=== PATIENT | female | born 1935 | race Caucasian/White ===

== ENCOUNTER 2018-04-24 06:52 | Day surgery (SDC) | payer MEDICARE, BC ==
[2018-04-24] MEDS ORDERED: Lactated Ringers 1,000 ML IV SCH (07:15)
[2018-04-24] MEDS ORDERED: Propofol 200 MG/20 ML SDV IV ONE (08:30)
[2018-04-24] MEDS ORDERED: Labetalol 100 MG/20 ML MDV IV ONE (08:30)
--- NOTE | 2018-04-24 09:09 | PCM.OPNOTE ---
- General Post-Op/Procedure Note Date of Surgery/Procedure: 04/24/18 Operative Procedure(s): attempted c scope Findings: sharp angle incomplete scope could not advance descending colon Pre Op Diagnosis: anemia secondary to kidney disease. need for screening c scope. Post-Op Diagnosis: tortuous colon Anesthesia Technique: MAC Primary Surgeon: Ty Barroso Anesthesia Provider: Jerardo Santana Pathology: none Complications: None Condition: Good Free Text/Narrative:: see dictation
--- NOTE | 2018-04-24 16:48 | OR ---
DATE OF OPERATION: 04/24/2018 SURGEON: Ty Barroso MD PROCEDURE PERFORMED: Flexible sigmoidoscopy. PREOPERATIVE DIAGNOSIS: History of anemia, never having a previous C-scope. POSTOPERATIVE DIAGNOSIS: Normal sigmoid colon and rectum, sharp angle, incomplete colonoscopy. INDICATIONS FOR PROCEDURE: This is an 82-year-old white female who is referred with a history of anemia. Of note, her indices did suggest chronic blood loss, are all within normal limits. She has never had a colonoscopy and essentially was offered and accepted a C-scope on that basis. DESCRIPTION OF PROCEDURE: After an excellent IV sedation was administered, digital rectal exam was performed. No marked abnormality was noted. Flexible colonoscope was inserted and advanced. At approximately 30 cm, we were unable to advance the scope further due to sharp angles in the colon, and this was despite abdominal wall pressure and manipulating the patient. Rather than risk perforation, I elected to terminate the procedure. The sigmoid and rectum were unremarkable. We will be getting an air contrast barium enema to clear the remainder of her colon. /[id number] /MODL
== END 2018-04-24 10:15 | disposition home or self-care (01) ==
LOC: FB.SDS 06:52
PROVIDERS: ATTEND Surgery
DX: I12.9 Hypertensive chronic kidney disease with stage 1 through stage 4 chronic kidney disease, or unspecified chronic kidney disease (principal); N18.3 Chronic kidney disease, stage 3 (moderate); D63.1 Anemia in chronic kidney disease; E87.5 Hyperkalemia; M19.90 Unspecified osteoarthritis, unspecified site; H25.9 Unspecified age-related cataract; Z79.899 Other long term (current) drug therapy; Z88.1 Allergy status to other antibiotic agents; Z90.49 Acquired absence of other specified parts of digestive tract
CPT/HCPCS: 00812; 45330; J2704; J7120

== ENCOUNTER 2019-06-29 09:34 | Day surgery (SDC) | payer MEDICARE, BC ==
[2019-06-29] MEDS ORDERED: Midazolam 1 MG/ML 2 ML SDV IV ONE (09:35)
[2019-06-29] MEDS ORDERED: fentaNYL 100 MCG/2 ML SDV IV ONE (09:35)
[2019-06-29] MEDS ORDERED: Lactated Ringers 1,000 ML IV PRN (10:00)
[2019-06-29] MEDS: Sodium Chloride 0.9% 10 ML Syringe FLUSH PRN (11:17)
--- NOTE | 2019-06-30 11:34 | OR ---
DATE OF OPERATION: 06/29/2019 SURGEON: Negrita Mendoza MD PREOPERATIVE DIAGNOSIS: Visually significant cataract, left eye. POSTOPERATIVE DIAGNOSIS: Visually significant cataract, left eye. PROCEDURES PERFORMED: Phacoemulsification with intraocular lens placement, left eye. ASSISTANTS: None. ANESTHESIA: Local with sedation. COMPLICATIONS: None. BLOOD LOSS: None. IMPLANTS: Roderick AU00T0 23.0 diopter lens, serial number [id number], implanted. CDE: 4.42. DESCRIPTION OF PROCEDURE: After risks and benefits were reviewed with the patient, consent was obtained in the preoperative area, and the operative eye was marked with a surgical pen. In the preoperative area, a pledget was used to dilate the pupil consisting of a mixture of phenylephrine 10%, cyclopentolate 2%, moxifloxacin 0.5%, and bupivacaine 0.75%. The patient was taken to the operating room, where a time-out was performed, and the patient was placed under monitored anesthesia care. Topical tetracaine was used for anesthesia. The operative eye was prepped and draped for ophthalmic surgery, and the microscope was brought into position and focussed. A paracentesis incision was made, followed by injection of preservative-free 1% lidocaine into the anterior chamber, followed by injection of Viscoat into the anterior chamber. A microkeratome blade was used to make a corneal limbal incision temporarily. A cystotome was used to make the beginning of the capsulorrhexis, which was carried around 360 degrees in a curvilinear fashion using Utrata forceps. A Porter cannula with BSS was used to hydrodissect and hydrodelineate the nucleus. The nucleus was removed in a divide and conquer manner using phacoemulsification. Irrigation and aspiration were used to remove the remaining cortical material. Provisc was used to inflate the capsular bag, and a pre-loaded Roderick AU00T0 23.0 diopter lens, serial number [id number], was injected into the capsular bag. A Sinskey hook was used to position and center the lens. Next, irrigation and aspiration was used to remove any remaining viscoelastic and cortical material from the anterior chamber. BSS on a cannula was used to inflate the anterior chamber and hydrate the wound. The wound was checked and found to be watertight. 1 mg of Moxifloxacin was injected into the anterior chamber. Drapes were removed and the eye was cleaned. A drop of brimonidine 0.15% and a drop of TobraDex was placed. The eye was shielded, and the patient was taken to the recovery room in stable condition. /[id number] ALONSO/COLE CC: CHRISTY GARCIA OD, SUNITHA WHATLEY MD MTDD
== END 2019-06-29 12:55 | disposition home or self-care (01) ==
LOC: FB.SDS 09:34
PROVIDERS: ATTEND Ophthalmology
DX: H25.013 Cortical age-related cataract, bilateral (principal); I12.9 Hypertensive chronic kidney disease with stage 1 through stage 4 chronic kidney disease, or unspecified chronic kidney disease; N18.3 Chronic kidney disease, stage 3 (moderate); E78.5 Hyperlipidemia, unspecified; M19.90 Unspecified osteoarthritis, unspecified site; J30.2 Other seasonal allergic rhinitis; F41.9 Anxiety disorder, unspecified; Z79.899 Other long term (current) drug therapy; Z88.1 Allergy status to other antibiotic agents; Z88.8 Allergy status to other drugs, medicaments and biological substances
CPT/HCPCS: 00142-QZ; J2250; J3010

== ENCOUNTER 2019-07-27 07:32 | Day surgery (SDC) | payer MEDICARE, BC ==
[2019-07-27] MEDS ORDERED: Midazolam 1 MG/ML 2 ML SDV IV ONE (07:33)
[2019-07-27] MEDS ORDERED: fentaNYL 100 MCG/2 ML SDV IV ONE (07:33)
[2019-07-27] MEDS ORDERED: Lactated Ringers 1,000 ML IV PRN (07:45)
[2019-07-27] MEDS ORDERED: Sodium Chloride 0.9% 10 ML Syringe FLUSH PRN (07:45)
[2019-07-27] MEDS ORDERED: Lactated Ringers 1,000 ML IV SCH (07:45)
--- NOTE | 2019-07-27 17:22 | OR ---
DATE OF OPERATION: 07/27/2019 SURGEON: Negrita Mendoza MD PREOPERATIVE DIAGNOSIS: Visually significant cataract, right eye. POSTOPERATIVE DIAGNOSIS: Visually significant cataract, right eye. PROCEDURES PERFORMED: Phacoemulsification with intraocular lens placement, right eye. ASSISTANTS: None. ANESTHESIA: Local with sedation. COMPLICATIONS: None. BLOOD LOSS: None. IMPLANTS: Roderick AU00T0 22.0 diopter lens, serial number [id number]. CDE: 3.32. DESCRIPTION OF PROCEDURE: After risks and benefits were reviewed with the patient, consent was obtained in the preoperative area, and the operative eye was marked with a surgical pen. In the preoperative area, a pledget was used to dilate the pupil consisting of a mixture of phenylephrine 10%, cyclopentolate 2%, moxifloxacin 0.5%, and bupivacaine 0.75%. The patient was taken to the operating room, where a time-out was performed, and the patient was placed under monitored anesthesia care. Topical tetracaine was used for anesthesia. The operative eye was prepped and draped for ophthalmic surgery, and the microscope was brought into position and focussed. A paracentesis incision was made, followed by injection of preservative-free 1% lidocaine into the anterior chamber, followed by injection of Viscoat into the anterior chamber. A microkeratome blade was used to make a corneal limbal incision temporarily. A cystotome was used to make the beginning of the capsulorrhexis, which was carried around 360 degrees in a curvilinear fashion using Utrata forceps. A Porter cannula with BSS was used to hydrodissect and hydrodelineate the nucleus. The nucleus was removed in a divide and conquer manner using phacoemulsification. Irrigation and aspiration were used to remove the remaining cortical material. Provisc was used to inflate the capsular bag, and a pre-loaded Roderick AU00T0 22.0 diopter lens, serial number [id number], was injected into the capsular bag. A Sinskey hook was used to position and center the lens. Next, irrigation and aspiration was used to remove any remaining viscoelastic and cortical material from the anterior chamber. BSS on a cannula was used to inflate the anterior chamber and hydrate the wound. The wound was checked and found to be watertight. 1 mg of Moxifloxacin was injected into the anterior chamber. A bandage contact lens was placed since the patient did have a corneal abrasion after the last surgery on her left eye. Drapes were removed and the eye was cleaned. A drop of brimonidine 0.15% and a drop of TobraDex was placed. The eye was shielded, and the patient was taken to the recovery room in stable condition. /[id number] ALONSO/COLE CC: RADHA GARDNER MD MTDD
== END 2019-07-27 11:09 | disposition home or self-care (01) ==
LOC: FB.SDS 07:32
PROVIDERS: ATTEND Ophthalmology
DX: H25.013 Cortical age-related cataract, bilateral (principal); I12.9 Hypertensive chronic kidney disease with stage 1 through stage 4 chronic kidney disease, or unspecified chronic kidney disease; N18.3 Chronic kidney disease, stage 3 (moderate); G47.00 Insomnia, unspecified; F41.9 Anxiety disorder, unspecified; J30.2 Other seasonal allergic rhinitis; E78.5 Hyperlipidemia, unspecified; M19.90 Unspecified osteoarthritis, unspecified site; Z79.899 Other long term (current) drug therapy; Z88.1 Allergy status to other antibiotic agents; Z88.8 Allergy status to other drugs, medicaments and biological substances
CPT/HCPCS: 00142; 66984; J2250; J3010; V2632

== ENCOUNTER 2020-02-21 10:21 | Observation (INO) | payer MEDICARE, BC ==
[2020-02-21] MEDS ORDERED: Sodium Chloride 0.9% 500 ML IV ONE (10:49)
--- NOTE | 2020-02-21 10:49 | EDM.PDOC ---
ED HPI GENERAL MEDICAL PROBLEM - General Chief Complaint: General Stated Complaint: WEAKNESS Time Seen by Provider: 02/21/20 10:44 Source of Information: Reports: Patient History Limitations: Reports: No Limitations - History of Present Illness INITIAL COMMENTS - FREE TEXT/NARRATIVE: Presents with generalized weakness x 2 weeks. She was recently treated for a UTI , those symptoms have cleared. Denies focal weakness, chest pain, SOB, or fever , but has had a cough. No prior h/o CAD. Denies known exposure to COVID-19. Patient takes Aleve daily for arthritis. Duration: Week(s): (2) Severity: Moderate - Related Data Allergies Allergy/AdvReac Type Severity Reaction Status Date / Time ciprofloxacin [From Cipro] Allergy Hives Verified 04/24/18 07:49 lisinopril Allergy Cannot Verified 06/21/19 14:46 Remember SEASONAL Allergy Sneezing Uncoded 06/21/19 14:46 Home Meds: Home Meds ALPRAZolam [Xanax] 0.25 mg PO BEDTIME 04/23/18 [History] Ascorbic Acid [Vitamin C] 1,000 mg PO DAILY 04/23/18 [History] Cholecalciferol (Vitamin D3) [Vitamin D3] 400 unit PO DAILY 04/23/18 [History] Flaxseed Oil 1,000 mg PO DAILY 04/23/18 [History] Metoprolol Tartrate 50 mg PO DAILY 04/23/18 [History] Pyridoxine HCl (Vitamin B6) [Vitamin B-6] 100 mg PO DAILY 04/23/18 [History] Cholecalciferol (Vitd3)/Vit K2 [D3 + K2 Dots 1,000 Unit] 1 ea PO DAILY 06/22/19 [History] Magnesium Oxide 250 mg PO DAILY 06/22/19 [History] hydroCHLOROthiazide [Hydrochlorothiazide] 25 mg PO DAILY 06/22/19 [History] Past Medical History HEENT History: Reports: Cataract, Impaired Vision, Macular Degeneration Cardiovascular History: Reports: High Cholesterol, Hypertension Respiratory History: Reports: None Gastrointestinal History: Reports: None Genitourinary History: Reports: Renal Disease, Other (See Below) Other Genitourinary History: STAGE 3 CKD, RENAL MASS TEST PULLER History: Reports: None, 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 Musculoskeletal History: Reports: Arthritis Neurological History: Reports: None Psychiatric History: Reports: Anxiety, Other (See Below) Other Psychiatric History: NEUROSIS Endocrine/Metabolic History: Other Endocrine/Metabolic History: ELEVATED LFTS Hematologic History: Reports: Other (See Below) Other Hematologic History: HYPERKALEMIA Oncologic (Cancer) History: Reports: Other (See Below) Other Oncologic History: KIDNEY Dermatologic History: Reports: None - Infectious Disease History Infectious Disease History: Reports: Chicken Pox, Measles, Mumps - Past Surgical History Head Surgeries/Procedures: Reports: None HEENT Surgical History: Reports: None, Cataract Surgery Cardiovascular Surgical History: Reports: None Respiratory Surgical History: Reports: None GI Surgical History: Reports: Appendectomy, Other (See Below) Other GI Surgeries/Procedures: RESECTION OF SMALL BOWEL IN 1987 Female Surgical History: Reports: Hysterectomy, Nephrectomy, Salpingo- Oophorectomy Other Female Surgeries/Procedures: RIGHT NEPHRECTOMY ET STATES WATING OF LEFT KIDNEY. HYOST ET WIH EVENTUAL BSO IN 2ND SURGERY Endocrine Surgical History: Reports: None Neurological Surgical History: Reports: None Musculoskeletal Surgical History: Reports: None Other Oncologic Surgeries/Procedures: RIGHT NEPHRECTOMY Dermatological Surgical History: Reports: None Social & Family History - Family History Family Medical History: Noncontributory - Caffeine Use Caffeine Use: Reports: Soda, Tea ED ROS GENERAL - Review of Systems Review Of Systems: Comprehensive ROS is negative, except as noted in HPI. ED EXAM, GENERAL - Physical Exam Exam: See Below Exam Limited By: No Limitations General Appearance: Alert, WD/WN, No Apparent Distress Throat/Mouth: No Airway Compromise Head: Atraumatic, Normocephalic Respiratory/Chest: No Respiratory Distress, Lungs Clear, Normal Breath Sounds Cardiovascular: No Murmur, Bradycardia (apical pulse 30's) GI/Abdominal: Non-Tender, No Distention Rectal (Female) Exam: Other (Minimal brown stool in vault) Extremities: Normal Range of Motion, No Pedal Edema Neurological: Alert, Oriented, CN II-XII Intact, Normal Cognition, No Motor/ Sensory Deficits, Other (GCS=15, NIHSS=0) Psychiatric: Normal Affect, Normal Mood Skin Exam: Warm, Dry, Intact EKG INTERPRETATION EKG Date: 02/21/20 Time: 11:16 Rhythm: Other (Bigeminy) Rate (Beats/Min): 76 [place]: Normal P-Wave: Present ST-T: Normal Comparison: NA - No Prior EKG Course - Vital Signs Last Recorded V/S: Last Vital Signs Temp 36.3 C 02/21/20 10:51 Pulse 42 L 02/21/20 10:51 Resp 18 02/21/20 12:06 BP 149/97 H 02/21/20 12:06 Pulse Ox 100 02/21/20 12:06 - Orders/Labs/Meds Orders: Active Orders 24 hr Category Date Time Status Admission Status [Patient Status] [ADT] Routine ADT 02/21/20 12:30 Ordered EKG Documentation Completion [RC] ASDIRECTED Care 02/21/20 10:37 Active CULTURE BLOOD [BC] Urgent Lab 02/21/20 10:45 Received CULTURE BLOOD [BC] Urgent Lab 02/21/20 10:50 Received Hemoccult [OCCULT BLOOD DIAGNOSTIC] [OP] Stat Lab 02/21/20 11:30 Received TYPE AND SCREEN [BBK] Stat Lab 02/21/20 10:45 Received Sodium Chloride 0.9% [Saline Flush] Med 02/21/20 10:38 Active 10 ml FLUSH ASDIRECTED PRN Blood Culture x2 Reflex Set [OM.PC] Urgent Oth 02/21/20 10:44 Ordered Saline Lock Insert [OM.PC] Routine Oth 02/21/20 10:38 Ordered EKG 12 Lead [EK] Stat Ther 02/21/20 10:36 Ordered Medication Orders Sodium Chloride (Saline Flush) 10 ml FLUSH ASDIRECTED PRN PRN Reason: Keep Vein Open Labs: Laboratory Tests 02/21/20 02/21/20 02/21/20 Range/Units 10:45 10:45 10:45 WBC 6.9 (4.5-12.0) X10-3/uL RBC 3.13 L (3.23-5.20) x10(6)uL Hgb 7.0 L (11.5-15.5) g/dL Hct 22.4 L D (30.0-51.3) % MCV 71.7 L (80-96) fL MCH 22.3 L (27.7-33.6) pg MCHC 31.2 L (32.2-35.4) g/dL RDW 16.6 H (11.5-15.5) % Plt Count 322 (125-369) X10(3)uL MPV 8.3 (7.4-10.4) fL Neut % (Auto) 62.7 (46-82) % Lymph % (Auto) 18.2 (13-37) % Reeves % (Auto) 13.7 H (4-12) % Eos % (Auto) 4 (1.0-5.0) % Baso % (Auto) 2 (0-2) % Neut # (Auto) 4.4 (1.6-8.3) # Lymph # (Auto) 1.2 (0.6-5.0) # Reeves # (Auto) 0.9 (0.0-1.3) # Eos # (Auto) 0.3 (0.0-0.8) # Baso # (Auto) 0.1 (0.0-0.2) # PT 10.9 (9.0-11.1) sec INR 1.01 (1.00-1.24) APTT 22.7 L (24.4-33.2) SECONDS Sodium 133 L (135-145) mmol/L Potassium 4.7 (3.5-5.3) mmol/L Chloride 100 (100-110) mmol/L Carbon Dioxide 22 (21-32) mmol/L BUN 20 H (7-18) mg/dL Creatinine 2.2 H* (0.55-1.02) mg/dL Est Cr Clr Drug Dosing 19.89 mL/min Estimated GFR (MDRD) 21 L (>60) BUN/Creatinine Ratio 9.1 (9-20) Glucose 102 (80-116) mg/dL Lactic Acid (0.4-2.0) mmol/L Calcium 8.1 L (8.6-10.2) mg/dL Magnesium 2.2 (1.8-2.5) mg/dL Total Bilirubin 0.4 (0.1-1.3) mg/dL AST 34 H (5-25) IU/L ALT 21 (12-36) U/L Alkaline Phosphatase 84 (56-112) IU/L Troponin I (4.0-60.3) pg/mL Total Protein 6.3 (6.0-8.0) g/dL Albumin 2.9 L (3.2-4.6) g/dL Globulin 3.4 g/dL Albumin/Globulin Ratio 0.9 Urine Color (YELLOW) Urine Appearance (CLEAR) Urine pH (5.0-6.5) Ur Specific [place] (1.010-1.025) Urine Protein (NEGATIVE) mg/dL Urine Glucose (UA) (NORMAL) mg/dL Urine Ketones (NEGATIVE) mg/dL Urine Occult Blood (NEGATIVE) Urine Nitrite (NEGATIVE) Urine Bilirubin (NEGATIVE) Urine Urobilinogen (NEGATIVE) mg/dL Ur Leukocyte Esterase (NEGATIVE) Urine WBC (0-5) Ur Squamous Epith Cells (NS,R,O) Urine Bacteria (NS) 02/21/20 02/21/20 02/21/20 Range/Units 10:45 10:45 11:42 WBC (4.5-12.0) X10-3/uL RBC (3.23-5.20) x10(6)uL Hgb (11.5-15.5) g/dL Hct (30.0-51.3) % MCV (80-96) fL MCH (27.7-33.6) pg MCHC (32.2-35.4) g/dL RDW (11.5-15.5) % Plt Count (125-369) X10(3)uL MPV (7.4-10.4) fL Neut % (Auto) (46-82) % Lymph % (Auto) (13-37) % Reeves % (Auto) (4-12) % Eos % (Auto) (1.0-5.0) % Baso % (Auto) (0-2) % Neut # (Auto) (1.6-8.3) # Lymph # (Auto) (0.6-5.0) # Reeves # (Auto) (0.0-1.3) # Eos # (Auto) (0.0-0.8) # Baso # (Auto) (0.0-0.2) # PT (9.0-11.1) sec INR (1.00-1.24) APTT (24.4-33.2) SECONDS Sodium (135-145) mmol/L Potassium (3.5-5.3) mmol/L Chloride (100-110) mmol/L Carbon Dioxide (21-32) mmol/L BUN (7-18) mg/dL Creatinine (0.55-1.02) mg/dL Est Cr Clr Drug Dosing mL/min Estimated GFR (MDRD) (>60) BUN/Creatinine Ratio (9-20) Glucose (80-116) mg/dL Lactic Acid 1.6 (0.4-2.0) mmol/L Calcium (8.6-10.2) mg/dL Magnesium (1.8-2.5) mg/dL Total Bilirubin (0.1-1.3) mg/dL AST (5-25) IU/L ALT (12-36) U/L Alkaline Phosphatase (56-112) IU/L Troponin I 14.1 (4.0-60.3) pg/mL Total Protein (6.0-8.0) g/dL Albumin (3.2-4.6) g/dL Globulin g/dL Albumin/Globulin Ratio Urine Color Yellow (YELLOW) Urine Appearance Clear (CLEAR) Urine pH 7.0 H (5.0-6.5) Ur Specific [place] 1.015 (1.010-1.025) Urine Protein Negative (NEGATIVE) mg/dL Urine Glucose (UA) Normal (NORMAL) mg/dL Urine Ketones Negative (NEGATIVE) mg/dL Urine Occult Blood Negative (NEGATIVE) Urine Nitrite Negative (NEGATIVE) Urine Bilirubin Negative (NEGATIVE) Urine Urobilinogen Normal (NEGATIVE) mg/dL Ur Leukocyte Esterase Negative (NEGATIVE) Urine WBC 0-5 (0-5) Ur Squamous Epith Cells Few H (NS,R,O) Urine Bacteria Few H (NS) Meds: Medications Generic Name Dose Route Start Last Admin Trade Name Freq PRN Reason Stop Dose Admin Sodium Chloride 10 ml 02/21/20 10:38 Saline Flush FLUSH ASDIRECTED PRN Keep Vein Open Discontinued Medications Generic Name Dose Route Start Last Admin Trade Name Freq PRN Reason Stop Dose Admin Sodium Chloride 500 mls @ 500 mls/hr 02/21/20 10:49 02/21/20 11:38 Normal Saline IV 02/21/20 11:48 500 mls/hr .BOLUS ONE Administration Pantoprazole Sodium 40 mg 02/21/20 11:47 Protonix Iv IVPUSH 02/21/20 11:48 ONETIME ONE - Radiology Interpretation Free Text/Narrative:: CXR: No acute process. (Dr. Phelps) - Re-Assessments/Exams Free Text/Narrative Re-Assessment/Exam: 02/21/20 11:39 Prior Hb 10.1 on 03/18/19 and Creat 1.65 on 06/15/19. 02/21/20 11:57 Lab states not enough stool to run stool hemoccult 02/21/20 12:32 Bigeminy resolved, Apical pulse 60's. 02/21/20 12:36 Dr. Lopez agrees to admit patient to [facility]. Patient requests DNR status. Departure - Departure Time of Disposition: 12:34 Disposition: Admitted As Inpatient 68 Condition: Fair Clinical Impression: Sinus bradycardia, Ventricular bigeminy, CKD (chronic kidney disease) stage 4, GFR 15-29 ml/min Anemia Qualifiers: Anemia type: due to chronic kidney disease Chronic kidney disease stage: stage 3 (moderate) Qualified Code(s): N18.3 - Chronic kidney disease, stage 3 ( moderate) Referrals: Denise Enrique, COMMUNITY RELATIONS COORDINATOR [Primary Care Provider] - Forms: ED Department Discharge Sepsis Event Note - Focused Exam Vital Signs: Vital Signs Temp Pulse Resp BP Pulse Ox 02/21/20 12:06 18 149/97 H 100 02/21/20 10:51 36.3 C 42 L 16 130/33 L 100 Date Exam was Performed: 02/21/20 Time Exam was Performed: 12:32 - My Orders Last 24 Hours: My Active Orders 02/21/20 10:36 EKG 12 Lead [EK] Stat 02/21/20 10:37 EKG Documentation Completion [RC] ASDIRECTED 02/21/20 10:38 Sodium Chloride 0.9% [Saline Flush] 10 ml FLUSH ASDIRECTED PRN Saline Lock Insert [OM.PC] Routine 02/21/20 10:44 Blood Culture x2 Reflex Set [OM.PC] Urgent 02/21/20 10:45 CULTURE BLOOD [BC] Urgent TYPE AND SCREEN [BBK] Stat 02/21/20 10:50 CULTURE BLOOD [BC] Urgent 02/21/20 11:30 Hemoccult [OCCULT BLOOD DIAGNOSTIC] [OP] Stat 02/21/20 12:30 Admission Status [Patient Status] [ADT] Routine - Assessment/Plan Last 24 Hours: My Active Orders 02/21/20 10:36 EKG 12 Lead [EK] Stat 02/21/20 10:37 EKG Documentation Completion [RC] ASDIRECTED 02/21/20 10:38 Sodium Chloride 0.9% [Saline Flush] 10 ml FLUSH ASDIRECTED PRN Saline Lock Insert [OM.PC] Routine 02/21/20 10:44 Blood Culture x2 Reflex Set [OM.PC] Urgent 02/21/20 10:45 CULTURE BLOOD [BC] Urgent TYPE AND SCREEN [BBK] Stat 02/21/20 10:50 CULTURE BLOOD [BC] Urgent 02/21/20 11:30 Hemoccult [OCCULT BLOOD DIAGNOSTIC] [OP] Stat 02/21/20 12:30 Admission Status [Patient Status] [ADT] Routine
--- NOTE | 2020-02-21 11:40 | CR ---
INDICATION: Weakness. CHEST, ONE VIEW: Portable AP upright view of the chest 02/21/20 - no comparisons. The heart appears enlarged. The aorta is slightly tortuous with calcification in the arch. Overlying EKG leads are noted. A definite active infiltrate or effusion was not identified. IMPRESSION: No acute process. MTDD
[2020-02-21] MEDS ORDERED: Pantoprazole 40 MG Vial IVPUSH ONE (11:47)
[2020-02-21] MEDS ORDERED: Acetaminophen 325 MG Tab PO PRN (12:56)
[2020-02-21] MEDS: Sodium Chloride 0.9% 250 ML IV SCH (14:00)
[2020-02-21] MEDS: Sodium Chloride 0.9% 10 ML Syringe FLUSH PRN (17:00)
[2020-02-21] MEDS ORDERED: ALPRAZolam 0.25 MG Tab PO SCH (21:00)
[2020-02-22] MEDS: Sodium Chloride 0.9% 10 ML Syringe FLUSH PRN ×2 (00:55→11:50)
[2020-02-22] MEDS ORDERED: Pantoprazole 40 MG Vial IVPUSH SCH (01:00)
[2020-02-22] MEDS ORDERED: Sodium Chloride 0.9% 250 ML IV SCH (08:45)
[2020-02-22] MEDS ORDERED: Hydrochlorothiazide 25 MG Tab PO SCH (09:00)
[2020-02-22] MEDS ORDERED: MAGNESIUM OXIDE 250 MG PO SCH (09:00)
[2020-02-22] MEDS: Sodium Chloride 0.9% 250 ML IV SCH (09:17)
--- NOTE | 2020-02-22 10:35 | PN ---
DATE SEEN: 02/22/2020 HISTORY: Caity Chambers is an 84-year-old female, admitted with a low hemoglobin of 7. Microcytic indices, probably GI loss, probably related to Aleve. Had a good night, though slept reluctantly. Hemoglobin ginna from 7 to 8.6 last evening, this morning 8.4. Another unit of blood will be given. Discussed endoscopy is a consideration. PHYSICAL EXAMINATION: VITAL SIGNS: Stable. 36.3, 86, 156/82, 16, and 98. GENERAL: In good spirits. NECK: Benign. Thyroid small. No JVD. CHEST: Clear in all lung mendes. HEART: No ectopy or murmur. ABDOMEN: Benign. Anemia likely of GI origin. PLAN: The 2nd unit of blood will be given today, hemoglobin follow. Complementary care and well being. Likely discharge this evening. Consider endoscopy upcoming. /[id number] NIECY/COLE
--- NOTE | 2020-02-22 10:54 | PCM.CONS ---
H&P History of Present Illness - General Date of Service: 02/22/20 Admit Problem/Dx: Admission Diagnosis/Problem Admission Diagnosis/Problem Anemia Source of Information: Patient - History of Present Illness Initial Comments - Free Text/Narative: 84 YO boone who was admitted with a hx of fatigue as well as some leg discomfort. Was noted to be anemic. Admitted and has received a 2 units. She has been on Aleve for yrs. Notes some mild epigastric abd discomfort. Stools have been dark to black recently. Has a hx of intestinal resection in the past as well as a hysterectomy. C scope in the distant past and is reported as negative. DENIES ANY PAIN WHEN ASKED AT PRESENT TIME Pain Score (Numeric/FACES): 0 - Related Data Allergies/Adverse Reactions: Allergies Allergy/AdvReac Type Severity Reaction Status Date / Time ciprofloxacin [From Cipro] Allergy Hives Verified 04/24/18 07:49 lisinopril Allergy Cannot Verified 06/21/19 14:46 Remember SEASONAL Allergy Sneezing Uncoded 06/21/19 14:46 Home Medications: Home Meds ALPRAZolam [Xanax] 0.5 mg PO BEDTIME 04/23/18 [History] Ascorbic Acid [Vitamin C] 1,000 mg PO DAILY 04/23/18 [History] Cholecalciferol (Vitamin D3) [Vitamin D3] 400 unit PO DAILY 04/23/18 [History] Flaxseed Oil 1,000 mg PO DAILY 04/23/18 [History] Pyridoxine HCl (Vitamin B6) [Vitamin B-6] 100 mg PO DAILY 04/23/18 [History] Cholecalciferol (Vitd3)/Vit K2 [D3 + K2 Dots 1,000 Unit] 1 ea PO DAILY 06/22/19 [History] Magnesium Oxide 250 mg PO DAILY 06/22/19 [History] Acetaminophen [Tylenol] 650 mg PO Q6H PRN tablet 02/22/20 [Rx] Ferrous Sulfate 325 mg PO BIDMEALS #60 tablet 02/22/20 [Rx] Pantoprazole [ProTONIX] 40 mg PO 0600 #30 tab.cr 02/22/20 [Rx] Past Medical History HEENT History: Reports: Cataract, Impaired Vision, Macular Degeneration Cardiovascular History: Reports: High Cholesterol, Hypertension Respiratory History: Reports: None Gastrointestinal History: Reports: None Genitourinary History: Reports: Renal Disease, Other (See Below) Other Genitourinary History: STAGE 3 CKD, RENAL MASS. Removed right kidney TUBE DRAW HELPER History: Reports: None, Other OB/BYN History: GRAVIDAA II PARA II Musculoskeletal History: Reports: Arthritis Neurological History: Reports: None Psychiatric History: Reports: Anxiety, Other (See Below) Other Psychiatric History: NEUROSIS Endocrine/Metabolic History: Other Endocrine/Metabolic History: ELEVATED LFTS Hematologic History: Reports: Other (See Below) Other Hematologic History: HYPERKALEMIA Oncologic (Cancer) History: Reports: Other (See Below) Other Oncologic History: KIDNEY Dermatologic History: Reports: None - Infectious Disease History Infectious Disease History: Reports: Chicken Pox, Measles, Mumps - Past Surgical History Head Surgeries/Procedures: Reports: None HEENT Surgical History: Reports: None, Cataract Surgery Cardiovascular Surgical History: Reports: None Respiratory Surgical History: Reports: None GI Surgical History: Reports: Appendectomy, Other (See Below) Other GI Surgeries/Procedures: RESECTION OF SMALL BOWEL IN 1987 Female Surgical History: Reports: Hysterectomy, Nephrectomy, Salpingo- Oophorectomy Other Female Surgeries/Procedures: RIGHT NEPHRECTOMY ET STATES WATING OF LEFT KIDNEY. HYOST ET WIH EVENTUAL BSO IN 2ND SURGERY Endocrine Surgical History: Reports: None Neurological Surgical History: Reports: None Musculoskeletal Surgical History: Reports: None Other Oncologic Surgeries/Procedures: RIGHT NEPHRECTOMY Dermatological Surgical History: Reports: None Social & Family History - Family History Family Medical History: Noncontributory - Tobacco Use Smoking Status *Q: Never Smoker - Caffeine Use Caffeine Use: Reports: Soda Other Caffeine Use: 1 coke/day - Recreational Drug Use Recreational Drug Use: No H&P Review of Systems - Review of Systems: Review Of Systems: See Below General: Reports: Fatigue Pulmonary: Reports: No Symptoms Gastrointestinal: Reports: Abdominal Pain, Black Stool Exam - Exam Exam: See Below - Vital Signs Vital Signs: Last Vital Signs Temp 98.0 F 02/22/20 09:32 Pulse 81 02/22/20 09:32 Resp 18 02/22/20 09:32 BP 149/71 H 02/22/20 09:32 Pulse Ox 100 02/22/20 09:32 Weight: 67.358 kg - Exam General: Alert, Oriented, Cooperative. No: Mild Distress Lungs: Clear to Auscultation, Normal Respiratory Effort Cardiovascular: Regular Rate, Regular Rhythm GI/Abdominal Exam: Normal Bowel Sounds, Tender (very mild in the epigastrium ) - Patient Data Lab Results Last 24 hrs: Laboratory Results - last 24 hr 02/21/20 02/21/20 02/21/20 Range/Units 10:45 10:45 10:45 WBC 6.9 (4.5-12.0) X10-3/uL RBC 3.13 L (3.23-5.20) x10(6)uL Hgb 7.0 L (11.5-15.5) g/dL Hct 22.4 L D (30.0-51.3) % MCV 71.7 L (80-96) fL MCH 22.3 L (27.7-33.6) pg MCHC 31.2 L (32.2-35.4) g/dL RDW 16.6 H (11.5-15.5) % Plt Count 322 (125-369) X10(3)uL MPV 8.3 (7.4-10.4) fL Neut % (Auto) 62.7 (46-82) % Lymph % (Auto) 18.2 (13-37) % Lamb % (Auto) 13.7 H (4-12) % Eos % (Auto) 4 (1.0-5.0) % Baso % (Auto) 2 (0-2) % Neut # (Auto) 4.4 (1.6-8.3) # Lymph # (Auto) 1.2 (0.6-5.0) # Lamb # (Auto) 0.9 (0.0-1.3) # Eos # (Auto) 0.3 (0.0-0.8) # Baso # (Auto) 0.1 (0.0-0.2) # PT 10.9 (9.0-11.1) sec INR 1.01 (1.00-1.24) APTT 22.7 L (24.4-33.2) SECONDS Sodium 133 L (135-145) mmol/L Potassium 4.7 (3.5-5.3) mmol/L Chloride 100 (100-110) mmol/L Carbon Dioxide 22 (21-32) mmol/L BUN 20 H (7-18) mg/dL Creatinine 2.2 H* (0.55-1.02) mg/dL Est Cr Clr Drug Dosing 19.89 mL/min Estimated GFR (MDRD) 21 L (>60) BUN/Creatinine Ratio 9.1 (9-20) Glucose 102 (80-116) mg/dL Lactic Acid (0.4-2.0) mmol/L Calcium 8.1 L (8.6-10.2) mg/dL Magnesium 2.2 (1.8-2.5) mg/dL Total Bilirubin 0.4 (0.1-1.3) mg/dL AST 34 H (5-25) IU/L ALT 21 (12-36) U/L Alkaline Phosphatase 84 (56-112) IU/L Troponin I (4.0-60.3) pg/mL Total Protein 6.3 (6.0-8.0) g/dL Albumin 2.9 L (3.2-4.6) g/dL Globulin 3.4 g/dL Albumin/Globulin Ratio 0.9 Urine Color (YELLOW) Urine Appearance (CLEAR) Urine pH (5.0-6.5) Ur Specific Franklin (1.010-1.025) Urine Protein (NEGATIVE) mg/dL Urine Glucose (UA) (NORMAL) mg/dL Urine Ketones (NEGATIVE) mg/dL Urine Occult Blood (NEGATIVE) Urine Nitrite (NEGATIVE) Urine Bilirubin (NEGATIVE) Urine Urobilinogen (NEGATIVE) mg/dL Ur Leukocyte Esterase (NEGATIVE) Urine WBC (0-5) Ur Squamous Epith Cells (NS,R,O) Urine Bacteria (NS) Blood Type Gel Antibody Screen Crossmatch 02/21/20 02/21/20 02/21/20 Range/Units 10:45 10:45 10:45 WBC (4.5-12.0) X10-3/uL RBC (3.23-5.20) x10(6)uL Hgb (11.5-15.5) g/dL Hct (30.0-51.3) % MCV (80-96) fL MCH (27.7-33.6) pg MCHC (32.2-35.4) g/dL RDW (11.5-15.5) % Plt Count (125-369) X10(3)uL MPV (7.4-10.4) fL Neut % (Auto) (46-82) % Lymph % (Auto) (13-37) % Lamb % (Auto) (4-12) % Eos % (Auto) (1.0-5.0) % Baso % (Auto) (0-2) % Neut # (Auto) (1.6-8.3) # Lymph # (Auto) (0.6-5.0) # Lamb # (Auto) (0.0-1.3) # Eos # (Auto) (0.0-0.8) # Baso # (Auto) (0.0-0.2) # PT (9.0-11.1) sec INR (1.00-1.24) APTT (24.4-33.2) SECONDS Sodium (135-145) mmol/L Potassium (3.5-5.3) mmol/L Chloride (100-110) mmol/L Carbon Dioxide (21-32) mmol/L BUN (7-18) mg/dL Creatinine (0.55-1.02) mg/dL Est Cr Clr Drug Dosing mL/min Estimated GFR (MDRD) (>60) BUN/Creatinine Ratio (9-20) Glucose (80-116) mg/dL Lactic Acid 1.6 (0.4-2.0) mmol/L Calcium (8.6-10.2) mg/dL Magnesium (1.8-2.5) mg/dL Total Bilirubin (0.1-1.3) mg/dL AST (5-25) IU/L ALT (12-36) U/L Alkaline Phosphatase (56-112) IU/L Troponin I 14.1 (4.0-60.3) pg/mL Total Protein (6.0-8.0) g/dL Albumin (3.2-4.6) g/dL Globulin g/dL Albumin/Globulin Ratio Urine Color (YELLOW) Urine Appearance (CLEAR) Urine pH (5.0-6.5) Ur Specific Franklin (1.010-1.025) Urine Protein (NEGATIVE) mg/dL Urine Glucose (UA) (NORMAL) mg/dL Urine Ketones (NEGATIVE) mg/dL Urine Occult Blood (NEGATIVE) Urine Nitrite (NEGATIVE) Urine Bilirubin (NEGATIVE) Urine Urobilinogen (NEGATIVE) mg/dL Ur Leukocyte Esterase (NEGATIVE) Urine WBC (0-5) Ur Squamous Epith Cells (NS,R,O) Urine Bacteria (NS) Blood Type O NEGATIVE Gel Antibody Screen Negative Crossmatch See Detail 02/21/20 02/21/20 02/22/20 Range/Units 11:42 18:15 06:05 WBC (4.5-12.0) X10-3/uL RBC (3.23-5.20) x10(6)uL Hgb 8.6 L (11.5-15.5) g/dL Hct 26.3 L (30.0-51.3) % MCV (80-96) fL MCH (27.7-33.6) pg MCHC (32.2-35.4) g/dL RDW (11.5-15.5) % Plt Count (125-369) X10(3)uL MPV (7.4-10.4) fL Neut % (Auto) (46-82) % Lymph % (Auto) (13-37) % Lamb % (Auto) (4-12) % Eos % (Auto) (1.0-5.0) % Baso % (Auto) (0-2) % Neut # (Auto) (1.6-8.3) # Lymph # (Auto) (0.6-5.0) # Lamb # (Auto) (0.0-1.3) # Eos # (Auto) (0.0-0.8) # Baso # (Auto) (0.0-0.2) # PT (9.0-11.1) sec INR (1.00-1.24) APTT (24.4-33.2) SECONDS Sodium 138 (135-145) mmol/L Potassium 4.6 (3.5-5.3) mmol/L Chloride 106 D (100-110) mmol/L Carbon Dioxide 21 (21-32) mmol/L BUN 19 H (7-18) mg/dL Creatinine 1.7 H (0.55-1.02) mg/dL Est Cr Clr Drug Dosing 24.81 mL/min Estimated GFR (MDRD) 29 L (>60) BUN/Creatinine Ratio 11.2 (9-20) Glucose 97 (80-116) mg/dL Lactic Acid (0.4-2.0) mmol/L Calcium 8.1 L (8.6-10.2) mg/dL Magnesium (1.8-2.5) mg/dL Total Bilirubin (0.1-1.3) mg/dL AST (5-25) IU/L ALT (12-36) U/L Alkaline Phosphatase (56-112) IU/L Troponin I (4.0-60.3) pg/mL Total Protein (6.0-8.0) g/dL Albumin (3.2-4.6) g/dL Globulin g/dL Albumin/Globulin Ratio Urine Color Yellow (YELLOW) Urine Appearance Clear (CLEAR) Urine pH 7.0 H (5.0-6.5) Ur Specific Franklin 1.015 (1.010-1.025) Urine Protein Negative (NEGATIVE) mg/dL Urine Glucose (UA) Normal (NORMAL) mg/dL Urine Ketones Negative (NEGATIVE) mg/dL Urine Occult Blood Negative (NEGATIVE) Urine Nitrite Negative (NEGATIVE) Urine Bilirubin Negative (NEGATIVE) Urine Urobilinogen Normal (NEGATIVE) mg/dL Ur Leukocyte Esterase Negative (NEGATIVE) Urine WBC 0-5 (0-5) Ur Squamous Epith Cells Few H (NS,R,O) Urine Bacteria Few H (NS) Blood Type Gel Antibody Screen Crossmatch 02/22/20 Range/Units 06:05 WBC 7.0 (4.5-12.0) X10-3/uL RBC 3.55 (3.23-5.20) x10(6)uL Hgb 8.4 L (11.5-15.5) g/dL Hct 26.3 L (30.0-51.3) % MCV 74.3 L (80-96) fL MCH 23.6 L (27.7-33.6) pg MCHC 31.8 L (32.2-35.4) g/dL RDW 18.3 H (11.5-15.5) % Plt Count 283 (125-369) X10(3)uL MPV (7.4-10.4) fL Neut % (Auto) (46-82) % Lymph % (Auto) (13-37) % Lamb % (Auto) (4-12) % Eos % (Auto) (1.0-5.0) % Baso % (Auto) (0-2) % Neut # (Auto) (1.6-8.3) # Lymph # (Auto) (0.6-5.0) # Lamb # (Auto) (0.0-1.3) # Eos # (Auto) (0.0-0.8) # Baso # (Auto) (0.0-0.2) # PT (9.0-11.1) sec INR (1.00-1.24) APTT (24.4-33.2) SECONDS Sodium (135-145) mmol/L Potassium (3.5-5.3) mmol/L Chloride (100-110) mmol/L Carbon Dioxide (21-32) mmol/L BUN (7-18) mg/dL Creatinine (0.55-1.02) mg/dL Est Cr Clr Drug Dosing mL/min Estimated GFR (MDRD) (>60) BUN/Creatinine Ratio (9-20) Glucose (80-116) mg/dL Lactic Acid (0.4-2.0) mmol/L Calcium (8.6-10.2) mg/dL Magnesium (1.8-2.5) mg/dL Total Bilirubin (0.1-1.3) mg/dL AST (5-25) IU/L ALT (12-36) U/L Alkaline Phosphatase (56-112) IU/L Troponin I (4.0-60.3) pg/mL Total Protein (6.0-8.0) g/dL Albumin (3.2-4.6) g/dL Globulin g/dL Albumin/Globulin Ratio Urine Color (YELLOW) Urine Appearance (CLEAR) Urine pH (5.0-6.5) Ur Specific Franklin (1.010-1.025) Urine Protein (NEGATIVE) mg/dL Urine Glucose (UA) (NORMAL) mg/dL Urine Ketones (NEGATIVE) mg/dL Urine Occult Blood (NEGATIVE) Urine Nitrite (NEGATIVE) Urine Bilirubin (NEGATIVE) Urine Urobilinogen (NEGATIVE) mg/dL Ur Leukocyte Esterase (NEGATIVE) Urine WBC (0-5) Ur Squamous Epith Cells (NS,R,O) Urine Bacteria (NS) Blood Type Gel Antibody Screen Crossmatch Result Diagrams: 02/22/20 06:05 02/22/20 06:05 Yesenia Results Last 24 hrs: Microbiology 02/21/20 19:02 Occult Blood - Preliminary Stool / Feces Sepsis Event Note - Evaluation Sepsis Screening Result: No Definite Risk - Focused Exam Vital Signs: Vital Signs Temp Temp Pulse Resp BP BP Pulse Ox 02/22/20 09:32 98.0 F 81 18 149/71 H 100 02/22/20 09:17 98.1 F 78 18 146/65 H 99 02/22/20 07:30 97.7 F 64 20 161/74 H 99 02/22/20 04:00 97.4 F 16 156/82 H 98 02/21/20 23:55 97.4 F 16 162/80 H 98 Date Exam was Performed: 02/22/20 Time Exam was Performed: 10:48 *Q Meaningful Use (ADM) - VTE *Q VTE Anticoagulation Contraindications: Medical/Procedure Contrai Consult PN Assessment/Plan Procedures: Procedures AGENT NOS ASSAY W/OPTIC (08/29/16) ANES LWR INTST SCR COLSC (04/24/18) ANESTH LENS SURGERY (07/27/19) ASSAY IGA/IGD/IGG/IGM EACH (01/15/16) ASSAY OF CK (CPK) (01/16/16) ASSAY THYROID STIM HORMONE (12/26/14) COMPLEMENT ANTIGEN (01/15/16) COMPLETE CBC W/AUTO DIFF WBC (01/15/16) COMPREHEN METABOLIC PANEL (01/15/16) CT ABD & PELV 1/> REGNS (01/26/16) CT ABD & PELVIS W/O CONTRAST (03/04/18) CULTURE AEROBIC IDENTIFY (05/31/14) DIAGNOSTIC SIGMOIDOSCOPY (04/24/18) ECHO EXAM OF ABDOMEN (01/24/16) FECES CULTURE AEROBIC BACT (08/29/16) LIPID PANEL (05/31/14) MICROBE SUSCEPTIBLE YESENIA (05/31/14) RBC SED RATE NONAUTOMATED (01/15/16) ROUTINE VENIPUNCTURE (01/16/16) SPECIMEN INFECT AGNT CONCNTJ (08/29/16) STOOL CULTR AEROBIC BACT EA (08/29/16) URINE BACTERIA CULTURE (05/31/14) VITAMIN B-12 (12/26/14) X-RAY XM COLON 1CNTRST STD (04/29/18) XCAPSL CTRC RMVL W/O ECP (07/27/19) (1) Anemia SNOMED Code(s): 571881127 Code(s): D64.9 - ANEMIA, UNSPECIFIED Current Visit: Yes Qualifiers: Anemia type: due to chronic kidney disease Chronic kidney disease stage: stage 3 (moderate) Qualified Code(s): N18.3 - Chronic kidney disease, stage 3 (moderate); D63.1 - Anemia in chronic kidney disease Assessment:: Certainly reasonable to eliminate a gi cause. Most likely upper gi with her findings of tenderness, hx of NSAID use as well as black stools. Problem List Initiated/Reviewed/Updated: Yes Plan: EGD. As an outpt. Procedure and risks were explained to the patient to include bleeding infection and perforation. She expressed understanding and asks us to proceed. Will perform as an outpt tomorrow.
--- NOTE | 2020-02-22 10:59 | HP ---
ADMISSION DATE: 02/21/2020 REASON FOR VISIT: Feeling weak, tired, and lethargic. HISTORY OF PRESENT ILLNESS: Caity Chambers is an 84-year-old, female, resides with her in [place], [place], was seen at [facility] ER, seen by Dr. Hipolito Carlton and admitted to the hospital for treatment. She has been really feeling weak, tired, fatigable. Had been told she had UTI, treatment was completed, symptoms had cleared but progressive weakness, shortness of breath, and general malaise. No history of heart disease. No known COVID exposure. She takes Aleve 2 daily for arthritis. DAILY MEDICATIONS: Include: 1. Vitamin C 1000 mg 1 p.o. daily, nutrition. 2. Vitamin D3 400 units 1 daily, nutrition. 3. Flaxseed oral 1000 mg daily. 4. Metoprolol 50 mg p.o. daily. 5. Vitamin B6 100 mg daily. 6. Alprazolam 0.5 at bedtime. 7. Magnesium oxide 250 daily. ALLERGIES: Ciprofloxacin with hives, lisinopril unknown, some seasonal allergies. PAST MEDICAL HISTORY: Significant for major abdominal surgery sometime in the 80s. She had "a tumor" of concern. Underwent a single surgery with hysterectomy and oophorectomy, second surgery same year, small bowel obstruction rest of ovary removed, exact pathology uncertain. In 2009, she had right renal cancer with removal, good outcome. No other operative procedures, hospitalizations, chronic illnesses. She is on metoprolol for blood pressure and heart rate control. It should be noted in the ER that her heart rate was in the 30s in bigeminy. The pulse has returned now into the 80s. SOCIAL HISTORY: Resides in [place], lives in 2-bedroom apartment, had been on a hobby farm before. 87, good health. Two kids, a son and a daughter, 3 grandkids, 1 granddaughter of cancer. GYNECOLOGICAL HISTORY: 2, para 2-0-0-2, postmenopausal female. REVIEW OF SYSTEMS: CONSTITUTIONAL: Feeling generally well. EYES: Sees well. EARS: Hears well. OROPHARYNX: Intact dentition. GI: Bowels have been fine. She has some frequent stools after meals. No blood in stools. No black tarry stools. : Voiding comfortably. Mild stress incontinence. CV: No chest pain, palpitations, or syncope. RESPIRATORY: No chronic cough. ORTHOPEDIC: Generalized joint complaints. NEUROLOGIC: Denies headache, blurred vision, lesions or tremors. ENDOCRINE: No excessive thirst or urination. PSYCHOLOGICAL: Mood stable. PHYSICAL EXAMINATION: VITAL SIGNS: 36.8, 76, 139/76, 97, 16, and 98. GENERAL: Appears comfortable. Bright, alert, awake, appears younger than stated age. HEENT: Funduscopic benign. Conjunctivae clear. Bright tympanic membranes. Clear nasal discharge. MOUTH AND OROPHARYNX: Clear. NECK: Benign. Thyroid small. CHEST: On auscultation, clear in all lung mendes. HEART: On auscultation, no ectopy or murmur. BREASTS: Normal female breasts. ABDOMEN: Benign. Surgical scars well healed. AND RECTAL: Declined, deferred. EXTREMITIES: Well perfused. NEUROMUSCULAR: Intact. LABORATORY STUDIES: Hemoglobin 7.0; hematocrit 22.4, microcytic indices; platelets 323,000. Electrolytes satisfactory. Sodium 133, potassium 4.7, creatinine 2.2, BUN 20. GFR 21. ASSESSMENT: 1. Acute symptomatic anemia, hemoglobin 7.0, microcytic indices, likely GI loss, concomitant daily use of Aleve. 2. Stage IV chronic renal failure. 3. Previous complicated laparotomy and malignancy of uncertain origin, right kidney cancer 2009, allergies to medications as noted above. PLAN: Admission for short-term stay. Type and screen 2 units, comfortably given, etiology to be considered. /[id number] NIECY/COLE CARDOZA
[2020-02-22] MEDS ORDERED: Ferrous Sulfate 325 MG Tab PO SCH (18:00)
[2020-02-23] MEDS ORDERED: Pantoprazole 40 MG Tab.CR PO SCH (06:00)
[2020-02-23 08:08] LABS: IRON BIND.CAP.(TIBC) 308 ug/dL (250-450); IRON SATURATION 5 % (15-55); IRON, SERUM 15 ug/dL (27-139); UIBC 293 ug/dL (118-369)
--- NOTE | 2020-02-24 17:24 | DISCH ---
DISCHARGE DATE: 02/22/2020 Caity Chambers is a delightful 84-year-old female from [place], [place], who was admitted at [facility] through the emergency room. She presented with weakness, fatigue, tired, progressive decline, and a sense of reduced well-being. Of significance, she was found to have a hemoglobin of 7.0 with microcytic indices, likely GI in origin. Medical care and past surgical intervention were defined. She was admitted for appropriate treatment and intervention. She was given a unit of blood, hemoglobin went from 7 to 8.6, down to 8.4. A second unit was given and hemoglobin ginna from 8.4 to 10. GI in nature. Hemoccult was performed, all were negative by report. Origin of bleeding still thought to be GI in nature. Of great concern, she is taking Aleve 1 pill twice a day for generalized arthritis. At the time of discharge, she is comfortable, was seen by Dr. Barroso in consultation with plans for endoscopy the days to follow. PHYSICAL EXAMINATION: VITAL SIGNS: At the time of discharge, 36.6, 84, 168/86, 18, and 98. HEENT: Unremarkable. NECK: Supple. Thyroid small. CHEST: Clear all lung mendes. HEART: No ectopy or murmur. ABDOMEN: Benign. SKIN: Without rash. It should be noted she had marked bradycardia. Her metoprolol was discontinued. We will watch blood pressures closely. Will follow up with her family doctor, Dr. Molina, in [address] Barroso perform endoscopy the day after discharge. SURGICAL PROCEDURES: None. CONSULTATIONS: None. Half an hour timeframe discharge and planning. /[id number] /COLE
== END 2020-02-22 13:05 | disposition home or self-care (01) ==
LOC: FB.ED 10:21 → FB.MS 12:30 → INTOOBSV 12:30
PROVIDERS: ADMIT Family Medicine; ATTEND Family Medicine
DX: I12.9 Hypertensive chronic kidney disease with stage 1 through stage 4 chronic kidney disease, or unspecified chronic kidney disease (principal); N18.4 Chronic kidney disease, stage 4 (severe); D63.1 Anemia in chronic kidney disease; E78.00 Pure hypercholesterolemia, unspecified; R53.1 Weakness; R00.1 Bradycardia, unspecified; R00.8 Other abnormalities of heart beat; R10.13 Epigastric pain; K92.1 Melena; Z98.890 Other specified postprocedural states; Z88.8 Allergy status to other drugs, medicaments and biological substances; Z79.899 Other long term (current) drug therapy; Z87.440 Personal history of urinary (tract) infections; Z90.49 Acquired absence of other specified parts of digestive tract
CPT/HCPCS: 36415; 36430; 71045; 80048; 80053; 81001; 82270; 82272; 83540; 83550; 83605; 83735; 84484; 85014; 85018; 85025; 85027; 85045; 85610; 85730; 86850; 86900; 86901; 86920; 86922; 87040; 93005; 93010; 99285; 99285-25; A9270-GY; C9113; J7040; J7050; P9016

== ENCOUNTER 2020-02-23 07:55 | Day surgery (SDC) | payer MEDICARE, BC ==
[2020-02-23] MEDS ORDERED: Propofol 200 MG/20 ML SDV IV ONE (07:56)
[2020-02-23] MEDS ORDERED: Lidocaine 2% 5 ML SDV INJECT ONE (07:56)
[2020-02-23] MEDS ORDERED: Sodium Chloride 0.9% 10 ML Syringe FLUSH PRN (08:45)
[2020-02-23] MEDS ORDERED: Lactated Ringers 1,000 ML IV SCH (08:45)
--- NOTE | 2020-02-23 09:28 | PCM.OPNOTE ---
- General Post-Op/Procedure Note Date of Surgery/Procedure: 02/23/20 Operative Procedure(s): egd with bx Findings: ulcer of antrum and body of stomach Pre Op Diagnosis: epigastric pain anemia and melena Post-Op Diagnosis: gastric ulcers x2 Anesthesia Technique: MAC Primary Surgeon: Ty Barroso Anesthesia Provider: Pj Ramirez Pathology: stomach Complications: None Condition: Good Free Text/Narrative:: see dictation
--- NOTE | 2020-02-23 10:05 | OR ---
DATE OF OPERATION: 02/23/2020 SURGEON: Ty Barroso MD PREOPERATIVE DIAGNOSES: History of melena, epigastric pain, and anemia. POSTOPERATIVE DIAGNOSIS: Healing antral and gastric body ulcer. PROCEDURE PERFORMED: Esophagogastroduodenoscopy with cold forceps biopsy. INDICATIONS FOR PROCEDURE: This is an 84-year-old white female who was admitted to the hospital yesterday. Subsequent workup had revealed a marked anemia. On questioning, she did note heavy NSAID use as well as some epigastric discomfort with occasional black stools. She was offered and accepted an EGD. DESCRIPTION OF OPERATION: After an adequate IV sedation was administered, bite block was inserted. Flexible endoscope was passed without difficulty down the patient's esophagus into her stomach. Stomach was insufflated. Scope was passed through the pylorus, second portion of the duodenum and slowly withdrawn. Following findings were noted. Duodenum was unremarkable. Stomach in the antrum, a small healing ulcer approximately 3 mm in size. Biopsies were taken circumferentially. There was also some diffuse mild gastritis noted, and then in the body of the stomach along the lateral wall, there was also another slightly larger ulcer that appeared to be healing as well and biopsies were taken in this area. The esophagus itself was unremarkable. The patient tolerated the procedure well, the scope was removed, was taken to recovery. We will be sending her results by letter. She is currently on a proton pump inhibitor and she has been instructed to stop her NSAID use. /[id number] /MODL
== END 2020-02-23 10:22 | disposition home or self-care (01) ==
LOC: FB.SDS 07:55
PROVIDERS: ATTEND Surgery
DX: K25.9 Gastric ulcer, unspecified as acute or chronic, without hemorrhage or perforation (principal); I12.9 Hypertensive chronic kidney disease with stage 1 through stage 4 chronic kidney disease, or unspecified chronic kidney disease; N18.4 Chronic kidney disease, stage 4 (severe); D63.1 Anemia in chronic kidney disease; E78.00 Pure hypercholesterolemia, unspecified; F41.9 Anxiety disorder, unspecified; R00.1 Bradycardia, unspecified; R00.8 Other abnormalities of heart beat; Z88.8 Allergy status to other drugs, medicaments and biological substances; Z88.0 Allergy status to penicillin; Z87.19 Personal history of other diseases of the digestive system; Z79.899 Other long term (current) drug therapy; Z91.09 Other allergy status, other than to drugs and biological substances
CPT/HCPCS: 00731; 43239; J2001; J2704; J7120; 88305; 88342

== ENCOUNTER 2020-04-10 07:01 | Day surgery (SDC) | payer MEDICARE, BC ==
[2020-04-10] MEDS ORDERED: Propofol 200 MG/20 ML SDV IV ONE (07:02)
[2020-04-10] MEDS ORDERED: Sodium Chloride 0.9% 10 ML Syringe FLUSH PRN (07:15)
[2020-04-10] MEDS ORDERED: Lactated Ringers 1,000 ML IV SCH (07:15)
--- NOTE | 2020-04-10 07:44 | PCM.HP.2 ---
H&P History of Present Illness - General Date of Service: 04/10/20 Admit Problem/Dx: Admission Diagnosis/Problem Admission Diagnosis/Problem Esophagogastroduodenoscopy - History of Present Illness Initial Comments - Free Text/Narative: 84 yo wf here for follow up egd for gastric ulcer found on egd in February. No complaints. - Related Data Allergies/Adverse Reactions: Allergies Allergy/AdvReac Type Severity Reaction Status Date / Time ciprofloxacin [From Cipro] Allergy Hives Verified 04/06/20 14:01 lisinopril Allergy Cannot Verified 04/06/20 14:01 Remember SEASONAL Allergy Sneezing Uncoded 04/06/20 14:01 Home Medications: Home Meds ALPRAZolam [Xanax] 0.5 mg PO BEDTIME 04/23/18 [History] Ascorbic Acid [Vitamin C] 1,000 mg PO DAILY 04/23/18 [History] Flaxseed Oil 1,000 mg PO DAILY 04/23/18 [History] Pyridoxine HCl (Vitamin B6) [Vitamin B-6] 100 mg PO DAILY 04/23/18 [History] Cholecalciferol (Vitd3)/Vit K2 [D3 + K2 Dots 1,000 Unit] 1 ea PO DAILY 06/22/19 [History] Magnesium Oxide 250 mg PO DAILY 06/22/19 [History] Acetaminophen [Tylenol] 650 mg PO Q6H PRN tablet 02/22/20 [Rx] Metoprolol Succinate [Toprol Xl] 50 mg PO DAILY 04/06/20 [History] Vitamin D3/Vitamin K2 (Mk4) [K2 Plus D3 Tablet] 1 each PO DAILY 04/06/20 [ History] Past Medical History HEENT History: Reports: Cataract, Hard of Hearing, Impaired Vision, Macular Degeneration Cardiovascular History: Reports: High Cholesterol, Hypertension Respiratory History: Reports: None Gastrointestinal History: Reports: None Genitourinary History: Reports: Renal Disease, Other (See Below) Other Genitourinary History: STAGE 3 CKD, RENAL MASS. Removed right kidney [employer] History: Reports: None, Other OB/BYN History: GRAVIDAA II PARA II Musculoskeletal History: Reports: Arthritis Neurological History: Reports: None Psychiatric History: Reports: Anxiety, Other (See Below) Other Psychiatric History: NEUROSIS Endocrine/Metabolic History: Other Endocrine/Metabolic History: ELEVATED LFTS, HYPERKALEMIA Hematologic History: Reports: Anemia, Other (See Below) Other Hematologic History: HYPERKALEMIA Oncologic (Cancer) History: Reports: Other (See Below) Other Oncologic History: KIDNEY Dermatologic History: Reports: None - Infectious Disease History Infectious Disease History: Reports: Chicken Pox, Measles, Mumps - Past Surgical History Head Surgeries/Procedures: Reports: None HEENT Surgical History: Reports: None, Cataract Surgery Cardiovascular Surgical History: Reports: None Respiratory Surgical History: Reports: None GI Surgical History: Reports: Appendectomy, Other (See Below) Other GI Surgeries/Procedures: RESECTION OF SMALL BOWEL IN 1987 Female Surgical History: Reports: Hysterectomy, Nephrectomy, Salpingo- Oophorectomy Other Female Surgeries/Procedures: RIGHT NEPHRECTOMY ET STATES WATING OF LEFT KIDNEY. HYOST ET SIDNEY EVENTUAL BSO IN 2ND SURGERY Endocrine Surgical History: Reports: None Neurological Surgical History: Reports: None Musculoskeletal Surgical History: Reports: None Other Oncologic Surgeries/Procedures: RIGHT NEPHRECTOMY Dermatological Surgical History: Reports: None Social & Family History - Family History Family Medical History: Noncontributory - Caffeine Use Caffeine Use: Reports: Coffee Other Caffeine Use: 1 coke/day H&P Review of Systems - Review of Systems: Review Of Systems: See Below General: Reports: No Symptoms Pulmonary: Reports: No Symptoms Cardiovascular: Reports: No Symptoms Gastrointestinal: Reports: No Symptoms Exam - Exam Exam: See Below - Vital Signs Vital Signs: Last Vital Signs Temp 98.3 F 04/10/20 07:30 Pulse 71 04/10/20 07:30 Resp 18 04/10/20 07:30 BP 171/75 H 04/10/20 07:30 Pulse Ox 100 04/10/20 07:30 Weight: 69.853 kg - Exam General: Alert, Oriented, Cooperative Lungs: Clear to Auscultation, Normal Respiratory Effort Cardiovascular: Regular Rate, Regular Rhythm GI/Abdominal Exam: Normal Bowel Sounds, Soft, Non-Tender Sepsis Event Note - Focused Exam Vital Signs: Vital Signs Temp Pulse Resp BP Pulse Ox 04/10/20 07:30 98.3 F 71 18 171/75 H 100 Date Exam was Performed: 04/10/20 Time Exam was Performed: 07:41 *Q Meaningful Use (ADM) - VTE *Q VTE Pharmacological Contraindications *Q: Patient Scheduled Surgery - Problem List (1) Gastric ulcer SNOMED Code(s): 493485936 ICD Code: K25.9 - GASTRIC ULCER, UNSP ACUTE OR CHRONIC, W/O HEMOR OR PERF Status: Acute Current Visit: No Problem Details: antral and body Qualifiers: Problem List Initiated/Reviewed/Updated: Yes Orders Last 24hrs: Active Orders 24 hr Category Date Time Status Patient Status [ADT] Routine ADT 04/10/20 07:15 Active Patient to Empty Bladder [RC] ASDIRECTED Care 04/10/20 07:15 Active Verify Patient Consent Obtain [RC] ASDIRECTED Care 04/10/20 07:15 Active Nothing Per Oral Diet [DIET] Diet 04/09/20 Dinner Ordered Lactated Ringers [Ringers, Lactated] 1,000 ml Med 04/10/20 07:15 Active IV ASDIRECTED Sodium Chloride 0.9% [Saline Flush] Med 04/10/20 07:15 Active 10 ml FLUSH ASDIRECTED PRN Peripheral IV Insertion Adult [OM.PC] Routine Oth 04/10/20 07:15 Ordered Medication Orders Lactated Ringer's (Ringers, Lactated) 1,000 mls @ 125 mls/hr IV ASDIRECTED SRIKANTH Sodium Chloride (Saline Flush) 10 ml FLUSH ASDIRECTED PRN PRN Reason: Keep Vein Open Assessment/Plan Comment:: For egd. procedure and risks explained to the patient. to include bleeding, infection, and perforation. She asks us to proceed. - Mortality Measure Prognosis:: Good
--- NOTE | 2020-04-10 09:01 | PCM.OPNOTE ---
- General Post-Op/Procedure Note Date of Surgery/Procedure: 04/10/20 Operative Procedure(s): egd with biospy Findings: healed ulcers mild gastritis Pre Op Diagnosis: hx of gastric ulcer Post-Op Diagnosis: gastritis Anesthesia Technique: CLARA Primary Surgeon: Ty Barroso Anesthesia Provider: Jerardo Santana Pathology: stomach Complications: None Condition: Good Free Text/Narrative:: see dictation
--- NOTE | 2020-04-10 23:40 | OR ---
DATE OF OPERATION: 04/10/2020 SURGEON: Ty Barroso MD PROCEDURE PERFORMED: Esophagogastroduodenoscopy with cold forceps biopsy. PREOPERATIVE DIAGNOSIS: Personal history of gastric ulcers. POSTOPERATIVE DIAGNOSIS: Gastritis. INDICATIONS FOR PROCEDURE: This is an 84-year-old white female who was found to have several gastric ulcers, thought to be secondary to NSAID use in February. She presents now for followup endoscopy. DESCRIPTION OF OPERATION: After an excellent IV sedation was administered, the bite block was inserted. Flexible endoscope was passed without difficulty down the patient's esophagus into the stomach. Stomach was insufflated. Scope was passed through the pylorus to second portion of the duodenum and slowly withdrawn. The following findings were noted: The duodenum was unremarkable. Stomach demonstrated that the ulcers have resolved. There was some mild gastritis noted, and several biopsies were taken. The esophagus was unremarkable. Stomach was deflated, scope was removed. The patient tolerated the procedure well. Results will be sent by letter. She is also no longer on an any type of acid suppression. We will be putting her on some omeprazole to take for the next couple of months. /[id number] /MODL
== END 2020-04-10 10:12 | disposition home or self-care (01) ==
LOC: FB.SDS 07:01
PROVIDERS: ATTEND Surgery
DX: K29.70 Gastritis, unspecified, without bleeding (principal); K31.9 Disease of stomach and duodenum, unspecified; E78.00 Pure hypercholesterolemia, unspecified; I12.9 Hypertensive chronic kidney disease with stage 1 through stage 4 chronic kidney disease, or unspecified chronic kidney disease; N18.3 Chronic kidney disease, stage 3 (moderate); Z88.1 Allergy status to other antibiotic agents; Z88.8 Allergy status to other drugs, medicaments and biological substances; Z79.899 Other long term (current) drug therapy
CPT/HCPCS: 43239; 88305; 88342; J2704; J7120; 00731-QZ

== ENCOUNTER 2022-07-11 11:36 | Emergency (ER) | payer MEDICARE, BC ==
[2022-07-11] MEDS ORDERED: Diltiazem 25 MG/5 ML SDV IVPUSH ONE ×2 (12:38→17:24)
[2022-07-11] MEDS ORDERED: Diltiazem 25 MG/5 ML SDV ONE (12:40)
[2022-07-11 13:12] LABS: ESTIMATED GFR 26 mL/min (>60)
[2022-07-11] MEDS ORDERED: Metoprolol Succinate 100 MG Tab.ER PO ONE (13:51)
[2022-07-11] MEDS ORDERED: Potassium Chloride 20 MEQ Tab.ER PO STA (13:53)
[2022-07-11] MEDS ORDERED: Sodium Chloride 0.9% 1,000 ML IV SCH (14:00)
[2022-07-11] MEDS ORDERED: Metoprolol Tartrate 50 MG Tab PO ONE (17:51)
[2022-07-11] MEDS ORDERED: Apixaban 5 MG Tab PO STA ×2 (17:52→17:59)
== END 2022-07-11 18:50 | disposition home or self-care (01) ==
LOC: FB.ED 11:36
DX: I48.91 Unspecified atrial fibrillation (principal); E86.0 Dehydration; E87.6 Hypokalemia; I10 Essential (primary) hypertension; Z88.1 Allergy status to other antibiotic agents; Z88.8 Allergy status to other drugs, medicaments and biological substances; Z91.048 Other nonmedicinal substance allergy status; Z79.899 Other long term (current) drug therapy; Z79.01 Long term (current) use of anticoagulants; Z90.49 Acquired absence of other specified parts of digestive tract
CPT/HCPCS: 36415; 70450; 80053; 84484; 85025; 93005; 96361; 96374; 96376; 99285; A9270; J3490; J7030

== ENCOUNTER 2022-08-23 13:49 | Emergency (ER) | payer MEDICARE, BC ==
[2022-08-23 14:32] LABS: ESTIMATED GFR 14 mL/min (>60)
[2022-08-23] MEDS ORDERED: Ondansetron 4 MG/2 ML SDV IVPUSH ONE (14:51)
[2022-08-23] MEDS ORDERED: Sodium Chloride 0.9% 1,000 ML IV SCH ×2 (15:00→16:30)
[2022-08-23 16:07] LABS: CORONAVIRUS COVID-19 NAA NEGATIVE (NEGATIVE)
[2022-08-23] MEDS ORDERED: Piperacillin/Tazobactam 4.5 GM in Sodium Chloride 0.9% 100 ML IV STA (18:42)
[2022-08-23] MEDS ORDERED: Metoprolol Tartrate 5 MG in Sodium Chloride 0.9% 50 ML IV ONE (19:36)
[2022-08-23] MEDS ORDERED: Metoprolol Tartrate 5 MG/5 ML SDV IVPUSH ONE (19:39)
== END 2022-08-23 20:55 ==
LOC: FB.ED 13:49
DX: I48.91 Unspecified atrial fibrillation (principal); K56.699 Other intestinal obstruction unspecified as to partial versus complete obstruction; E86.0 Dehydration; N17.9 Acute kidney failure, unspecified; I10 Essential (primary) hypertension; Z88.1 Allergy status to other antibiotic agents; Z88.8 Allergy status to other drugs, medicaments and biological substances; Z91.048 Other nonmedicinal substance allergy status; Z79.899 Other long term (current) drug therapy; Z79.01 Long term (current) use of anticoagulants; Z90.49 Acquired absence of other specified parts of digestive tract; Z20.822 Contact with and (suspected) exposure to COVID-19
CPT/HCPCS: 0240U; 36415; 74176; 80053; 81001; 82150; 83605; 83690; 84484; 85025; 87040; 87086; 87088; 87186; 93005; 96361; 96365; 96375; 99285; J2405; J2543; J3490; J7030

== ENCOUNTER 2024-07-15 21:13 | Inpatient (IN) | payer MEDICARE ==
[2024-07-15 22:20] LABS: HEMATOCRIT 30.1 % (34.2-48.2); HEMOGLOBIN 10.4 g/dL (11.4-15.5); MEAN CORPUSCULAR HEMOGLOBIN 29.6 pg (23.9-33.9); MEAN CORPUSCULAR HGB CONC 34.6 g/dL (31.9-34.8); MEAN CORPUSCULAR VOLUME 85.5 fL (76.7-100.5); MEAN PLATELET VOLUME 7.6 fL (7.1-12.4); PLATELET COUNT,PLT 215 x10(3)uL (151-488); RED BLOOD CELL COUNT 3.52 x10(6)uL (3.60-5.20); RED CELL DISTRIBUTION WIDTH 14.4 % (12.3-16.5); WHITE BLOOD CELL COUNT,WBC 15.7 x10-3/uL (3.0-10.3)
[2024-07-15 22:33] LABS: C-REACTIVE PROTEIN 0.76 mg/dL (<0.50); TROPONIN I 12.1 pg/mL (4.0-60.3)
[2024-07-15 22:34] LABS: LYMPHOCYTES PERCENT MAN 3 % (13-37); MONOCYTES PERCENT MAN 4 % (4-12); SEG NEUTROPHILS PERCENT MAN 93 % (46-82)
[2024-07-15 22:38] LABS: A/G RATIO 0.9; ALANINE AMINOTRANSFERASE,ALT 17 U/L (12-36); ALBUMIN 3.3 g/dL (3.2-4.6); ALKALINE PHOSPHATASE 76 IU/L (56-112); ASPARTATE AMNIOTRANSFERASE,AST 23 IU/L (5-25); BILIRUBIN TOTAL 0.8 mg/dL (0.1-1.3); BLOOD UREA NITROGEN,BUN 19 mg/dL (7-18); BUN/CREATININE RATIO 13.6 (9-20); CALCIUM 8.7 mg/dL (8.6-10.2); CARBON DIOXIDE,CO2 24 mmol/L (21-32); CREATININE 1.4 mg/dL (0.55-1.02); ESTIMATED GFR 36 mL/min (>60); GLUCOSE RANDOM 125 mg/dL (80-116); MAGNESIUM 1.6 mg/dL (1.8-2.5); POTASSIUM,K 4.2 mmol/L (3.5-5.3); PROTEIN TOTAL,TP 6.8 g/dL (6.0-8.0); SODIUM,NA 122 mmol/L (135-145)
[2024-07-15 22:39] LABS: CHLORIDE,CL 89 mmol/L (100-110)
[2024-07-15 22:43] LABS: BILIRUBIN,URINE NEGATIVE (NEGATIVE); GLUCOSE,URINE NORMAL (NORMAL); KETONES,URINE NEGATIVE (NEGATIVE); LEUKOCYTE ESTERASE,URINE SMALL (NEGATIVE); NITRITE,URINE NEGATIVE (NEGATIVE); OCCULT BLOOD,URINE NEGATIVE (NEGATIVE); PROTEIN,URINE NEGATIVE (NEGATIVE); UROBILINOGEN,URINE NORMAL (NEGATIVE)
[2024-07-15] MEDS: Sodium Chloride 0.9% 1,000 ML IV ONE (22:49)
[2024-07-15 22:54] LABS: BACTERIA,URINE MODERATE (NS); COLOR,URINE YELLOW (YELLOW); RBC,URINE 0-5 (0-5); SQUAMOUS EPITHELIAL CELLS,UR OCCASIONAL (NS,R,O)
[2024-07-15 23:02] LABS: APPEARANCE,URINE CLEAR (CLEAR)
[2024-07-16] MEDS ORDERED: Acetaminophen 325 MG Tab PO PRN (00:59)
[2024-07-16] MEDS ORDERED: Ondansetron 4 MG/2 ML SDV IV PRN (00:59)
[2024-07-16] MEDS: Pantoprazole 40 MG Vial IVPUSH SCH (01:56)
[2024-07-16] MEDS: cefTRIAXone 1 GM Vial IVPUSH SCH ×2 (02:02→10:35)
[2024-07-16] MEDS: Magnesium Sulfate/Water 2 GM in Premix Bag 1 BAG IV ONE (02:10)
[2024-07-16] MEDS: Sodium Chloride 0.9% 1,000 ML IV SCH (02:10)
[2024-07-16 06:10] LABS: BASOPHILS PERCENT AUTO 0.2 % (0.2-1.5); EOSINOPHILS PERCENT AUTO 0.1 % (0.6-8.1); HEMATOCRIT 27.7 % (34.2-48.2); HEMOGLOBIN 9.6 g/dL (11.4-15.5); LYMPHOCYTES ABSOLUTE AUTO 0.6 x10-3/uL (1.0-4.4); LYMPHOCYTES PERCENT AUTO 5.5 % (18.4-52.1); MEAN CORPUSCULAR HEMOGLOBIN 30.1 pg (23.9-33.9); MEAN CORPUSCULAR HGB CONC 34.8 g/dL (31.9-34.8); MEAN CORPUSCULAR VOLUME 86.5 fL (76.7-100.5); MEAN PLATELET VOLUME 7.8 fL (7.1-12.4); MONOCYTES ABSOLUTE AUTO 0.7 x10-3/uL (0.3-1.0); MONOCYTES PERCENT AUTO 6.2 % (4.4-15.7); NEUTROPHILS ABSOLUTE AUTO 9.5 x10-3/uL (1.5-6.3); PLATELET COUNT,PLT 212 x10(3)uL (151-488); RED CELL DISTRIBUTION WIDTH 14.3 % (12.3-16.5); WHITE BLOOD CELL COUNT,WBC 10.8 x10-3/uL (3.0-10.3)
[2024-07-16 06:21] LABS: BLOOD UREA NITROGEN,BUN 15 mg/dL (7-18); BUN/CREATININE RATIO 10.7 (9-20); CALCIUM 8.2 mg/dL (8.6-10.2); CARBON DIOXIDE,CO2 25 mmol/L (21-32); CHLORIDE,CL 95 mmol/L (100-110); CREATININE 1.4 mg/dL (0.55-1.02); EST CRCL DRUG DOSING (CG) 26.47 mL/min; ESTIMATED GFR 36 mL/min (>60); GLUCOSE RANDOM 106 mg/dL (80-116); MAGNESIUM 2.5 mg/dL (1.8-2.5); POTASSIUM,K 4.5 mmol/L (3.5-5.3); SODIUM,NA 127 mmol/L (135-145)
[2024-07-16] MEDS: Enoxaparin 30 MG/0.3 ML Syringe SUBCUT SCH (10:01)
[2024-07-16] MEDS: Sodium Chloride 0.9% 10 ML Syringe FLUSH PRN (10:35)
== END 2024-07-16 11:20 | disposition home or self-care (01) | DRG 690 ==
LOC: FB.ED 21:13 → FB.MS 07-16 00:54
PROVIDERS: ADMIT Emergency Medicine; ATTEND Family Medicine
PROC: 0T9B70Z Drainage of Bladder with Drainage Device, Via Natural or Artificial Opening (ICD-10-PCS; principal; 2024-07-16)
DX: R53.1 Weakness (principal); N30.00 Acute cystitis without hematuria; N39.0 Urinary tract infection, site not specified; I10 Essential (primary) hypertension; Z91.199 Patient's noncompliance with other medical treatment and regimen due to unspecified reason; E87.1 Hypo-osmolality and hyponatremia; Z91.048 Other nonmedicinal substance allergy status; N17.9 Acute kidney failure, unspecified; Z90.49 Acquired absence of other specified parts of digestive tract; I48.91 Unspecified atrial fibrillation; E78.00 Pure hypercholesterolemia, unspecified; M19.90 Unspecified osteoarthritis, unspecified site; F41.9 Anxiety disorder, unspecified; N18.32 Chronic kidney disease, stage 3b; H91.90 Unspecified hearing loss, unspecified ear; H54.7 Unspecified visual loss; Z88.1 Allergy status to other antibiotic agents; Z88.8 Allergy status to other drugs, medicaments and biological substances; Z79.899 Other long term (current) drug therapy; Z79.01 Long term (current) use of anticoagulants; Z98.49 Cataract extraction status, unspecified eye; Z90.89 Acquired absence of other organs; Z90.710 Acquired absence of both cervix and uterus; Z90.722 Acquired absence of ovaries, bilateral; Z90.79 Acquired absence of other genital organ(s)
CPT/HCPCS: 36415 ×2; 71046; 74176; 80053; 81001; 82272; 83605; 83690; 83735; 84484; 85025; 86140; 87086; 93005; J7030; U0002; 80048; 87040; 87088; 87186; 94150; 99222; J0696; J1650; J2470; J3475; J3490

== ENCOUNTER 2024-08-30 13:50 | Observation (INO) | payer MEDICARE ==
[2024-08-30] MEDS ORDERED: Sodium Chloride 0.9% 10 ML Syringe FLUSH PRN (15:03)
[2024-08-30] MEDS ORDERED: Acetaminophen 325 MG Tab PO PRN (15:03)
[2024-08-30] MEDS: Cephalexin 250 MG Cap PO SCH (15:46)
[2024-08-30] MEDS: Sodium Chloride 1 GM Tab PO SCH (15:46)
[2024-08-30] MEDS: Losartan 25 MG Tab PO SCH (20:00)
[2024-08-30] MEDS: amLODIPine 5 MG Tab PO SCH (20:01)
[2024-08-30 21:25] LABS: BLOOD UREA NITROGEN,BUN 21 mg/dL (7-18); BUN/CREATININE RATIO 16.2 (9-20); CALCIUM 8.3 mg/dL (8.6-10.2); CARBON DIOXIDE,CO2 26 mmol/L (21-32); CREATININE 1.3 mg/dL (0.55-1.02); EST CRCL DRUG DOSING (CG) 27.62 mL/min; ESTIMATED GFR 40 mL/min (>60); GLUCOSE RANDOM 99 mg/dL (80-116); POTASSIUM,K 3.8 mmol/L (3.5-5.3); SODIUM,NA 120 mmol/L (135-145)
[2024-08-30 21:42] LABS: CHLORIDE,CL 87 mmol/L (100-110)
[2024-08-30] MEDS: Sodium Chloride 0.9% 1,000 ML IV ONE (22:06)
[2024-08-31 01:14] LABS: BLOOD UREA NITROGEN,BUN 21 mg/dL (7-18); BUN/CREATININE RATIO 17.5 (9-20); CALCIUM 8.3 mg/dL (8.6-10.2); CARBON DIOXIDE,CO2 24 mmol/L (21-32); CHLORIDE,CL 93 mmol/L (100-110); CREATININE 1.2 mg/dL (0.55-1.02); EST CRCL DRUG DOSING (CG) 29.92 mL/min; ESTIMATED GFR 44 mL/min (>60); GLUCOSE RANDOM 102 mg/dL (80-116); SODIUM,NA 124 mmol/L (135-145)
[2024-08-31 06:29] LABS: BASOPHILS PERCENT AUTO 0.8 % (0.2-1.5); EOSINOPHILS PERCENT AUTO 0.7 % (0.6-8.1); HEMOGLOBIN 9.8 g/dL (11.4-15.5); LYMPHOCYTES PERCENT AUTO 21.9 % (18.4-52.1); MEAN CORPUSCULAR HEMOGLOBIN 30.6 pg (23.9-33.9); MEAN CORPUSCULAR VOLUME 87.5 fL (76.7-100.5); MEAN PLATELET VOLUME 7.6 fL (7.1-12.4); MONOCYTES ABSOLUTE AUTO 0.7 x10-3/uL (0.3-1.0); MONOCYTES PERCENT AUTO 14.6 % (4.4-15.7); NEUTROPHILS ABSOLUTE AUTO 2.9 x10-3/uL (1.5-6.3); PLATELET COUNT,PLT 232 x10(3)uL (151-488); RED CELL DISTRIBUTION WIDTH 14.8 % (12.3-16.5); WHITE BLOOD CELL COUNT,WBC 4.6 x10-3/uL (3.0-10.3)
[2024-08-31 06:33] LABS: BLOOD UREA NITROGEN,BUN 17 mg/dL (7-18); BUN/CREATININE RATIO 15.5 (9-20); CALCIUM 8.5 mg/dL (8.6-10.2); CARBON DIOXIDE,CO2 25 mmol/L (21-32); CHLORIDE,CL 96 mmol/L (100-110); CREATININE 1.1 mg/dL (0.55-1.02); EST CRCL DRUG DOSING (CG) 32.64 mL/min; ESTIMATED GFR 49 mL/min (>60); GLUCOSE RANDOM 102 mg/dL (80-116); POTASSIUM,K 4.1 mmol/L (3.5-5.3); SODIUM,NA 129 mmol/L (135-145)
== END 2024-08-31 11:00 | disposition home or self-care (01) ==
LOC: FB.MS 13:50
PROVIDERS: ADMIT Family Medicine; ATTEND Family Medicine
DX: E87.1 Hypo-osmolality and hyponatremia (principal); N30.00 Acute cystitis without hematuria; G93.41 Metabolic encephalopathy; I12.9 Hypertensive chronic kidney disease with stage 1 through stage 4 chronic kidney disease, or unspecified chronic kidney disease; N18.32 Chronic kidney disease, stage 3b; Z79.899 Other long term (current) drug therapy; Z88.0 Allergy status to penicillin
CPT/HCPCS: 36415; 71045; 80048; 85025; 93005; 94150; 99222; 99238; A9270-GY; J7030